=== PATIENT | male | born 1985 | race Hispanic/Latino ===

== ENCOUNTER 2017-11-11 06:33 | Day surgery (SDC) | payer MEDICAID ==
[2017-11-11] MEDS: Ringers Lactate 1,000 ML IV ONE ×2 (07:01→07:49)
[2017-11-11] MEDS ORDERED: TISSEEL VH 2 MG KIT TOP ONE (07:19)
[2017-11-11] MEDS ORDERED: POVIDONE-IODINE 5% EYE DROPS ONE (07:21)
[2017-11-11] MEDS ORDERED: BSS OPTHALMIC SOL 15 ML BOT OPTH ONE (07:21)
[2017-11-11] MEDS ORDERED: TOBRADEX 0.3-0.1% OPTH OINTMENT ONE (07:22)
[2017-11-11] MEDS ORDERED: LIDOCAINE 1% W/EPI 1:100,000 MDV 50 ML VIAL ONE (07:22)
[2017-11-11] MEDS ORDERED: LIDOCAINE 2% MPF 5 ML VIAL ONE (07:28)
[2017-11-11] MEDS ORDERED: MIDAZOLAM HCL 2 MG/2 ML INJ ONE (07:28)
[2017-11-11] MEDS ORDERED: PROPOFOL 200 MG/20 ML VIAL IV ONE (07:28)
[2017-11-11] MEDS ORDERED: FENTANYL CITR 100 MCG/2 ML ONE (07:28)
[2017-11-11] MEDS ORDERED: LANO/MINERAL OIL/PETRO 3.5 GM ONE (08:06)
[2017-11-11] MEDS ORDERED: NA CHLORIDE 0.9% 500 ML ONE (09:29)
--- NOTE | 2017-11-11 12:09 | OP ---
Date of Procedure: 11/11/2017 Surgeon: Regan Cook MD Preoperative Diagnosis: Pterygium, right eye. Postoperative Diagnosis: Pterygium, right eye. Procedures Performed: Pterygium excision, right eye, with placement of amniotic membrane graft and u se of Tisseel fibrin glue. Procedure In Detail: After being properly identified in the preoperative holding area, the patient w as taken back to the operating room where a time-out was performed. Examination of the eye prior to prep revealed small appearing corneas, which were then measured with a caliper revealing the cornea o n the left measuring 9 mm x 10 mm and 10 mm x 10 mm on the right. 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 This had been noted in the office. Thereafter, the patient was prepped and draped in normal sterile fashion. Using a pair of 0.12 forceps, a [place] blade was used to dissect the pterygium off the cornea and Suma scissors used to cut and undermi ne the conjunctiva. The degenerated Tenon's was removed with as much conjunctival sparing as was pos sible and thereafter hemostasis was achieved using electrocautery on the bare sclera. Once the scler a and cornea had been scraped smooth and clean, the amniotic membrane was opened and cut to size. Th e tissue glue was then applied in a separate fashion to the base and the membrane laid over and swept clean in order to remove any wrinkles or air bubbles. The fibrin glue took longer to set up than an ticipated, despite not being diluted and because of this, an adequate pie crust was not able to be fo rmed even though the edges were tucked underneath the conjunctiva. Additional fibrin glue was applie d on top of the graft in cornea resulting in a shell that will hopefully keep the graft in place whil e the cells are absorbed. The patient was thereafter awoken from general anesthesia having tolerated the procedure well. There were no complications other than the setup of the fibrin glue as describe d. Estimated fluid loss less than 5 mL. No specimens were sent. No drains were placed. The patient is to follow up with myself Dr. Regan Cook at the [facility] tomorrow mary kenny. JPG/MODL Voice ID: [id number] Report ID: [id number]
== END 2017-11-11 10:30 | disposition home or self-care (01) ==
LOC: OR 06:33
PROVIDERS: ATTEND Ophthalmology
PROC: 08R Eye, Replacement (ICD-10-PCS; principal; 2017-11-11 07:30)
DX: H11.001 Unspecified pterygium of right eye (principal)
CPT/HCPCS: J2250; J3010; V2790